=== PATIENT | male | born 2000 | race Two or more races ===

== ENCOUNTER 2025-04-22 16:08 | Emergency (ER) | payer OTHER ==
[~2025-04-22] VITALS: Ht 175.3 cm; Wt 72.9 kg
[2025-04-22 17:43] LABS: Trichomonas vaginalis (AMP) NOT DETECTED (NEGATIVE)
[2025-04-22 17:58] LABS: HIV 1&2 SCREEN NEGATIVE (NEGATIVE)
[2025-04-22 18:07] LABS: GC DNA AMPLIFICATION NEGATIVE (NEGATIVE)
[2025-04-22 20:06] VITALS: BP 130/72; TEMP 97.2; O2SAT 99
== END 2025-04-22 20:10 | disposition home or self-care (01) ==
LOC: M ED 16:08
DX: Z20.2 Contact with and (suspected) exposure to infections with a predominantly sexual mode of transmission (principal)